=== PATIENT | female | born 1945 | race African-American/Black ===

== ENCOUNTER 2018-02-01 06:09 | Day surgery (SDC) | payer MEDICARE, OTHER ==
[~2018-02-01] VITALS: Ht 165.1 cm; Wt 78.5 kg
[2018-02-01] VITALS (8 sets, daily range): BP systolic 133–186; BP diastolic 72–86
[~2018-02-01 06:09] MED LIST: Lidocaine 1% 10mg/ml/Epi 0.005mg/ml 30ml vial INJ ONE; Lidocaine 1% MPF 10mg/ml 5ml ONE; Midazolam 2mg/2ml Inj ONE; Propofol 200mg/20ml IV ONE; fentaNYL 100 mcg/2 mL IV ONE
[2018-02-01] MEDS ORDERED: Cocaine HCl 4% 4ml vial TOPIC ONE (06:40)
[2018-02-01] MEDS ORDERED: Oxymetazoline 0.05% Na Spray 30ml NASAL ONE (06:41)
[2018-02-01] MEDS ORDERED: Bacitracin Oint 15gm Tube TOPIC ONE (06:41)
[2018-02-01] MEDS ORDERED: Lidocaine 1% 10mg/ml/Epi 0.005mg/ml 30ml vial INJ ONE (06:42)
[2018-02-01] MEDS ORDERED: Midazolam 2mg/2ml Inj ONE (06:53)
[2018-02-01] MEDS ORDERED: Lidocaine 1% MPF 10mg/ml 5ml ONE (06:53)
[2018-02-01] MEDS ORDERED: fentaNYL 100 mcg/2 mL IV ONE (06:53)
[2018-02-01] MEDS ORDERED: Propofol 200mg/20ml IV ONE (06:53)
[2018-02-01] MEDS ORDERED: Succinylcholine 20mg/ml 10ml vial ONE (07:00)
[2018-02-01] MEDS ORDERED: Zemuron 50mg/5ml Inj IV ONE (07:00)
--- NOTE | 2018-02-01 07:48 | Anethesia Preoperative Eval ---
Anesthesia Pre-op PMH/ROS General Date of Evaluation: Feb 01, 2018 Time of Evaluation: 07:46 Anesthesiologist: Ellyn Castano CRNA ASA Score: ASA 3 Mallampati Score Class I : Soft palate, uvula, fauces, pillars visible Class II: Soft palate, uvula, fauces visible Class III: Soft palate, base of uvula visible Class IV: Only hard plate visible Mallampati Classification: Class II Surgeon: Elzbieta Diagnosis: Enlarge turbinates Surgical Procedure: Fracture of turbinates and cautery Anesthesia History: none Family History: no anesthesia problems Allergies: Coded Allergies: No Known Allergies (Unverified , 02/01/18) Medications: see eMAR Patient NPO?: Yes NPO Date: Feb 01, 2018 NPO Time: 00:00 Past Medical History Cardiovascular: Reports: HTN; Denies: CAD, AL, valve dz, arrhythmia, other Pulmonary: Denies: asthma, COPD, RU, other Gastrointestinal/Genitourinary: Reports: GERD, CRI; Denies: ESRD, other Neurologic/Psychiatric: Reports: dementia; Denies: CVA, depression/anxiety, TIA, other Endocrine: Denies: DM, hypothyroidism, steroids, other HEENT: Reports: glaucoma; Denies: cataract (L), cataract (R), [place] (L), [place] (R), other Hematology/Immune: Denies: anemia, DVT, bleeding disorder, other Musculoskeletal/Integumentary: Reports: OA; Denies: RA, DJD, DDD, edema, other PMH Narrative: as above PSxH Narrative: eye surgery Anesthesia Pre-op Phys. Exam Physician Exam Last Vital Signs Date Time Temp Pulse Resp B/P (MAP) Pulse Ox O2 Delivery O2 Flow Rate FiO2 02/01/18 07:21 97.6 69 20 133/72 98 Room Air Constitutional: NAD Neurologic: CN 2-12 intact Cardiovascular: RRR Respiratory: CTA Gastrointestinal: S/NT/ND Airway Exam Mallampati Score: Class II Neck: no limitations TMD: > 3 FB ROM: full Teeth: missing Anesthesia Pre-op A/P Labs Reviewed from outside care facility Oct 2017; WNL Studies Pre-op Studies: EKG - NSR low voltage borderline for LVH Risk Assessment & Plan Assessment: ASA 3, ok to proceed Plan: GETA Status Change Before Surgery: No Pre-Antibiotics Given Within 1 Hr of Incision: No Ellyn Castano CRNA Feb 01, 2018 07:48
--- NOTE | 2018-02-01 08:50 | Pre-Procedure Note/Attestation ---
Pre-Procedure Note/Attestation Complete Prior to Procedure Planned Procedure: bilateral Indications for Procedure Pre-Operative Diagnosis: bilateral nasal obstruction Attestation I attest that I discussed the nature of the procedure; its benefits; risks and complications; and alternatives (and the risks and benefits of such alternatives ), prior to the procedure, with the patient (or the patient's legal solar manufacturer's representative). I attest that, if there was a reasonable possibility of needing a blood transfusion, the patient (or the patient's legal solar manufacturer's representative) was given the [facility] standardized written summary, pursuant to the Bandar Dawson Blood Safety Act ([place] Health and Safety Code # 1645, as amended). I attest that I re-evaluated the patient just prior to the surgery and that there has been no change in the patient's H&P, except as documented below: Brandon Ruff MD Feb 01, 2018 08:50
[2018-02-01] MEDS ORDERED: Sterile Water Irrig 1000ml IRRIG ONE (09:00)
[2018-02-01] MEDS ORDERED: NS Irrig 1000ml ONE (09:00)
[2018-02-01] MEDS ORDERED: LR 1000ml ONE (09:00)
--- NOTE | 2018-02-01 09:42 | Immediate Post-Op Evaluation ---
Immediate Post-Op Evalulation Immediate Post-Op Evalulation Procedure: Nasal turbinate fracture and cautery Date of Evaluation: Feb 01, 2018 Time of Evaluation: 09:30 IV Fluids: LR 200 ml Estimated Blood Loss: 20 ml Blood Pressure Systolic: 150 Blood Pressure Diastolic: 81 Pulse Rate: 77 Respiratory Rate: 26 O2 Sat by Pulse Oximetry: 100 Temperature (Fahrenheit): 97.6 Pain Score (1-10): 0 Nausea: No Vomiting: No Patient Status: awake, reacts, patent, extubated Hydration Status: adequate Ellyn Castano CRNA Feb 01, 2018 09:42
[2018-02-01] MEDS ORDERED: CEPHALEXIN500 MG ORAL (10:12)
[2018-02-01] MEDS ORDERED: MIRTAZAPINE15 M3 ORAL (10:12)
[2018-02-01] MEDS ORDERED: TIMOPTIC 0.25%1 DROP BOTH EYES (10:12)
[2018-02-01] MEDS ORDERED: ATENOLOL25 MG ORAL (10:12)
[2018-02-01] MEDS ORDERED: PANTOPRAZOLE SO40 MG ORAL (10:12)
[2018-02-01] MEDS ORDERED: RISPERIDONE1 MG ORAL (10:12)
[2018-02-01] MEDS ORDERED: MYLANTA PO (10:12)
--- NOTE | 2018-02-01 11:56 | 48 Hour Post Anesthesia Eval ---
Post Anesthesia Evaluation Procedure: Nasal turbinate fracture and cautery Date of Evaluation: Feb 01, 2018 Time of Evaluation: 11:33 Blood Pressure Systolic: 146 0: 82 Pulse Rate: 80 Respiratory Rate: 20 Temperature (Fahrenheit): 98.1 O2 Sat by Pulse Oximetry: 100 Airway: patent Nausea: No Vomiting: No Pain Intensity: 0 Hydration Status: adequate Cardiopulmonary Status: stable Mental Status/LOC: patient returned to baseline Follow-up Care/Observations: per plastics Post-Anesthesia Complications: none Follow-up care needed: ready to discharge Ellyn Castano CRNA Feb 01, 2018 11:56
--- NOTE | 2018-02-02 19:45 | Operative Note - Dictated ---
DATE OF OPERATION: 02/01/2018 PREOPERATIVE DIAGNOSIS: Nasal obstruction with hypertrophy of turbinates bilaterally of the nose. POSTOPERATIVE DIAGNOSIS: Nasal obstruction with hypertrophy of turbinates bilaterally of the nose. The patient did not have good competency for the procedure and was consented by the son who I spoke to in depth. DESCRIPTION OF PROCEDURE: The patient was brought to the operating room table and injected with 1% Xylocaine in 1:200,000 epinephrine. After it was prepped with Betadine, we did this bilaterally of the turbinates. We then used a large nasal speculum and outfractured the turbinates bilaterally and then used the needle cautery Harrison needle and cauterized the middle and inferior turbinates bilaterally. The patient had less than 1 mL of blood loss and was then extubated and transferred to the postop recovery facility. The airway was nice and open. Brandon Ruff M.D. DR: Red JOB#: [id number] CC:
== END 2018-02-01 11:15 | disposition home or self-care (01) ==
LOC: SUR 06:09
DX: J34.3 Hypertrophy of nasal turbinates (principal); J34.89 Other specified disorders of nose and nasal sinuses
CPT/HCPCS: 30930; J0330; J2250; J2405; J2704; J3010; 94003; 94150